=== PATIENT | female | born 1985 | race Caucasian/White ===

== ENCOUNTER 2019-03-15 18:18 | Emergency (ER) | payer OTHER ==
[~2019-03-15] VITALS: Ht 152.4 cm; Wt 67.6 kg
[2019-03-15 18:31] VITALS: Ht 152.4 cm; Wt 67.6 kg
[2019-03-15 21:55] VITALS: BP 145/84
== END 2019-03-15 21:55 | disposition home or self-care (01) ==
LOC: ED 18:18
DX: B34.9 Viral infection, unspecified (principal); R07.89 Other chest pain; R10.30 Lower abdominal pain, unspecified; Z98.890 Other specified postprocedural states
CPT/HCPCS: 87804; J1885; Q0162